=== PATIENT | female | born 1940 | race Caucasian/White ===

== ENCOUNTER → 2016-07-30 | Outpatient (CLI) | payer OTHER, BC ==
[2016-07-30 10:06] LABS: ESTIMATED AVERAGE GLUCOSE 120 mg/dl; HA1C FLAG Normal (Normal)
[2016-07-30 10:32] LABS: BLOOD UREA NITROGEN 21 mg/dl (7-18); BUN/CREATININE RATIO 24.8 (10-20); CALCIUM 9.7 mg/dl (8.5-10.1); CARBON DIOXIDE 33 mmol/L (21-32); CHLORIDE 106 mmol/L (98-107); CREATININE 0.86 mg/dl (0.60-1.20); GLUCOSE 95 mg/dl (70-99); SODIUM 144 mmol/L (136-145)
== END | disposition home or self-care (01) ==
LOC: C.LAB 08:43
PROVIDERS: ATTEND Internal Medicine Geriatric Medicine
DX: I10 Essential (primary) hypertension (principal); R73.9 Hyperglycemia, unspecified

== ENCOUNTER → 2017-02-06 | Outpatient (CLI) | payer OTHER, BC ==
--- NOTE | 2017-02-07 15:37 | MAMMOGRAPHY REPORT ---
BILATERAL DIGITAL SCREENING MAMMOGRAM WITH CAD: 02/06/2017 CLINICAL HISTORY: Routine screening. Patient has no complaints. TECHNIQUE: Current study was also evaluated with a Computer Aided Detection (CAD) system. Bilateral CC and MLO views were obtained. COMPARISON: Comparison is made to exams dated: 02/06/2016 mammogram, 05/03/2013 mammogram - [facility], 11/08/2009 mammogram- [facility]. BREAST COMPOSITION: The tissue of both breasts is almost entirely fatty. FINDINGS: No suspicious masses, calcifications, or areas of architectural distortion are noted in ei ther breast. There has been no significant interval change compared to prior exams. A small 6 mm nod ular asymmetry in the right upper outer quadrant is stable om MLO views dating back to at least the F ebruary 2013 exam, and is considered benign given long-term stability. IMPRESSION: ACR BI-RADS CATEGORY 2: BENIGN There is no mammographic evidence of malignancy. A 1 year screening mammogram is recommended. The pa tient will receive written notification of the results. Approximately 10% of breast cancers are not detected with mammography. A negative mammographic report should not delay biopsy if a clinically suggestive mass is present. Hannah Case M.D. /:02/06/2017 16:12:15 Application Penetration Tester: Lorraine MULLEN)(Claudio), [facility] letter sent: Normal 1/2 BI-RADS Code: ACR BI-RADS Category 2: Benign
== END | disposition home or self-care (01) ==
LOC: C.MAMM 09:48
PROVIDERS: ATTEND Internal Medicine Geriatric Medicine
DX: Z12.31 Encounter for screening mammogram for malignant neoplasm of breast (principal)

== ENCOUNTER → 2017-03-06 | Outpatient (CLI) | payer OTHER, BC ==
[2017-03-06 12:08] LABS: BASO % 0.8 %; BASO ABS # 0.05 K/uL (0-0.2); COMPLETE YES; EOS % 3.3 %; HEMATOCRIT 38.5 % (37-47); IG% 0.6 %; LYMPH % 33.3 %; LYMPH ABS # 2.12 K/uL (1.2-3.4); MEAN CELL VOLUME 91.4 fL (80-100); MEAN CORPUSCULAR HEMOGLOBIN 29.2 pg (25-34); MEAN CORPUSCULAR HGB CONC 31.9 g/dl (32-36); MEAN PLATELET VOLUME 11.3 fL (7.4-10.4); PLATELET COUNT 290 K/uL (130-400); RED BLOOD COUNT 4.21 M/uL (4.2-5.4); WHITE BLOOD COUNT 6.36 K/uL (4.8-10.8)
[2017-03-06 12:36] LABS: BLOOD UREA NITROGEN 23 mg/dl (7-18); BUN/CREATININE RATIO 28.4 (10-20); CARBON DIOXIDE 28 mmol/L (21-32); CHLORIDE 105 mmol/L (98-107); CHOLESTEROL 178 mg/dl (0-200); CREATININE 0.81 mg/dl (0.60-1.20); GLUCOSE 86 mg/dl (70-99); POTASSIUM 3.7 mmol/L (3.5-5.1); SODIUM 139 mmol/L (136-145)
[2017-03-06 12:39] LABS: CHOLESTEROL/HDL RATIO 2.5; HDL CHOLESTEROL 72 mg/dl; LDL CHOLESTEROL CALCULATED 95 mg/dl; TRIGLYCERIDES 55 mg/dl (0-150); VERY LOW DENSITY LIPOPROT CALC 11 mg/dl
== END | disposition home or self-care (01) ==
LOC: C.LAB 11:22
PROVIDERS: ATTEND Internal Medicine Geriatric Medicine
DX: I10 Essential (primary) hypertension (principal); M19.90 Unspecified osteoarthritis, unspecified site; R73.9 Hyperglycemia, unspecified; E78.5 Hyperlipidemia, unspecified

== ENCOUNTER → 2017-03-25 | Outpatient (CLI) | payer OTHER, BC | END | disposition home or self-care (01) | LOC: C.LAB 08:53 | PROVIDERS: ATTEND Internal Medicine Geriatric Medicine | DX: R31.29 Other microscopic hematuria (principal) ==

== ENCOUNTER 2019-04-09 07:47 | Inpatient (IN) ==
--- NOTE | 2019-03-08 12:50 | Anesthesiology Consultation ---
Date of Service March 08, 2019 Assessment & Plan (1) Encounter for pre-operative examination: Chart Review Chart Review: Acceptable Risk for Surgery and Patient seen in Pre Admission Testing Teaching & Discussion Instructed NPO after midnight before surgery, except medications with 15 cc of water. Medication instructions provided according to the PAT guidelines. History Surgery Operation Date: 04/09/19 09:00 Proposed Procedures p Left Total Knee Arthroplasty - Brandin Mac, Height/Weight Height: 5 ft Weight: 92.8 kg Allergies Allergy/AdvReac Type Severity Reaction Status Date / Time ampicillin Allergy Unknown RED URINE Verified 03/01/19 11:46 Medications Home Medications Medication Instructions Recorded Confirmed Last Taken atorvastatin 10 mg PO QAM 03/20/18 03/08/19 03/01/19 calcium carbonate [Calcium 500] 500 mg PO QPM 03/20/18 03/08/19 04/10/18 12:00 multivitamin 1 cap PO QPM 03/20/18 03/08/19 04/10/18 12:00 omega 2-itd-via-fish oil [Fish Oil] 1 cap PO QPM 03/20/18 03/08/19 04/03/18 12:00 triamterene-hydrochlorothiazid 1 cap PO QAM 03/20/18 03/08/19 03/01/19 Past Medical History Medical History Aortic stenosis, mild (Chronic) Back problem MISALIGNED DISC Emphysema of lung MENTIONED FOLLOWING PREVIOUS PRE TESTING STUDY Heart murmur Hyperlipidemia (Chronic) Hypertension (Chronic) Neck problem LIMITED ROM SIDE TO SIDE FOR YRS Osteoarthritis (Chronic) Therapy CURRENT ACCUPUNCTURE FOR L KNEE AND BACK Exercise / Class Metabolic Activity II 4-5 Yardwork/Stairs/Walk up hill (Denies CP or SOB with 1 FOS, does very often at home) Past Surgical History Surgical History H/O total knee replacement dos 04/17/[address] Mac History of cataract surgery RIGHT AND LEFT History of colonoscopy Hx of dilation and curettage X2 ? Past Anesthesia History No Hx of Anesthesia Complications and No Family Hx of Anesthesia Complications History of PONV No Hx of PONV and No Hx of Motion Sickness Social History Smoking Status: Former smoker Smoking cigarettes per day: H/O 1PPD Do You Dip or Chew Tobacco: No Smoking End Date: 1986 Hx Alcohol Use: Yes Alcohol type: wine alcohol intake frequency: holidays/special occasions only Hx Substance Use: No substance use type: does not use Review of Systems Pt denies any recent chest pain, shortness of breath, palpitations, cough, fever or URI. Physical Exam Vital Signs BP: 111/72 P: 75bpm SPO2: 94% RA T: 98.4 F R: 16 ENMT Mouth: + dentures and + edentulous; no chipped teeth and no loose teeth Thyromental Distance: > or= 3.5 Finger Breadths Mallampati Class: II Neck + short neck; neck extension not limited Respiratory normal respiratory effort Auscultation: lungs clear to auscultation bilaterally Cardiovascular Rate/Rhythm: regular rate and regular rhythm Heart Sounds: + murmur (II/ KAILYN ) Vessels: no carotid bruit Extremities: no edema Testing Laboratory Results 03/08/19 12:59 03/08/19 12:59 PT 10.1 Seconds (9.0-12.0) 03/08/19 12:59 INR 1.0 (0.9-1.1) 03/08/19 12:59 APTT 26.5 Seconds (21.0-31.0) 03/08/19 12:59 Blood Type A Positive 03/08/19 12:59 Antibody Screen NEGATIVE 03/08/19 12:59 Electrocardiogram Date: 01/04/19 Findings: + NSR @ (80bpm) Nonspecific ST abnormality. Chest X-Ray Date: 03/08/19 IMPRESSION: 1. Coarsened underlying lung markings could suggest emphysema or other mild chronic lung disease. 2. No focal infiltrate to suggest acute cardiopulmonary disease. Echocardiogram Date: 04/03/18 EF: 50-60% Normal L:V size and systolic function. No definite regional wall motion abnormalities. No LVH. Type I diastolic dysfunction. Mild left atrial dilation. Mild (XIMENA 1.4cm, mean gradient 14.9mmHg).
--- NOTE | 2019-03-08 12:57 | PAT Medication Instructions ---
Medication Instructions Date of Service March 08, 2019 Home Medications atorvastatin 10 mg PO QAM calcium carbonate [Calcium 500] 500 mg PO QPM multivitamin 1 cap PO QPM omega 9-fvh-ttl-fish oil [Fish Oil] 1 cap PO QPM triamterene-hydrochlorothiazid 1 cap PO QAM STOP taking 2 weeks before surgery omega 4-fmi-zjb-fish oil [Fish Oil] 1 cap PO QPM DO NOT take the morning of surgery triamterene-hydrochlorothiazid 1 cap PO QAM Take morning of surgery With a small sip of water, OTHERWISE NOTHING TO EAT OR DRINK AFTER MIDNIGHT: atorvastatin 10 mg PO QAM Take evening before surgery calcium carbonate [Calcium 500] 500 mg PO QPM multivitamin 1 cap PO QPM Other Notes If you have any questions please call us at [phone] or [phone] or [phone] or [phone]
--- NOTE | 2019-03-08 13:29 | XRay Report ---
XR chest Pre-admission PA/Lat CLINICAL HISTORY: 78 years-old Female presenting with preoperative assessment. TECHNIQUE: Portable upright AP view of the chest was obtained. COMPARISON: 03/30/2018. FINDINGS: Atherosclerosis of the aortic arch. Cardiac silhouette normal in size. Heterogeneously coarsened lung markings. Slight blunting of the left costophrenic angle though no effusion is evident in the precision optical goods worker ior costophrenic sulcus. No focal opacity. No large effusion or pneumothorax. Degenerative changes of the thoracic spine. Upper abdomen normal. IMPRESSION: 1. Coarsened underlying lung markings could suggest emphysema or other mild chronic lung disease. 2. No focal infiltrate to suggest acute cardiopulmonary disease. Electronically signed by: Gray Vance M.D. 03/08/2019 1:27 PM
[2019-03-08 14:21] LABS: Basophils # (auto) 0.02 K/uL (0-0.2); Basophils % (auto) 0.3 %; Eosinophils # (auto) 0.17 K/uL (0-0.5); Eosinophils % (auto) 2.3 %; Hematocrit (blood only) 38.7 % (37-47); Hemoglobin 12.3 g/dL (12.0-16.0); Immature Granulocytes # (auto) 0.04 K/uL (0.00-0.02); Immature Granulocytes % (auto) 0.5 %; Lymphocytes # (auto) 1.86 K/uL (1.2-3.4); Lymphocytes % (auto) 25.4 %; Mean Corpuscular Hemoglobin 29.8 pg (25-34); Mean Corpuscular Hgb Conc 31.8 g/dL (32-36); Mean Corpuscular Volume 93.7 fL (80-100); Mean Platelet Volume 11.3 fL (7.4-10.4); Monocytes # (auto) 0.74 K/uL (0.11-0.59); Monocytes % (auto) 10.1 %; Neutrophils % (auto) 61.4 %; Platelet Count 258 K/uL (130-400); Red Blood Count 4.13 M/uL (4.2-5.4); White Blood Count 7.33 K/uL (4.8-10.8)
[2019-03-08 14:41] LABS: Partial Thromboplastin Time 26.5 Seconds (21.0-31.0); Prothrombin Time 10.1 Seconds (9.0-12.0)
[2019-03-08 14:55] LABS: Calcium 9.4 mg/dl (8.5-10.1); Creatinine Clr Calc Pharmacy 45.9 ml/min; Est GFR (African American) 61.3; Est GFR (Non-African American) 52.9; Potassium 3.9 mmol/L (3.5-5.1)
--- NOTE | 2019-04-08 06:38 | History & Physical Report ---
Date of Service April 08, 2019 Assessment & Plan (1) Osteoarthritis of left knee: We will proceed with a left total knee arthroplasty. Postoperatively she will be started on aspirin for DVT prophylaxis. She will be kept overnight in the hospital for postoperative medical management. She plans to use energy physical therapy upon discharge. Present on Admission?: Yes History of Present Illness Chief Complaint: Primary osteoarthritis of the left knee Primary Care Provider: Marnie Brunner MD Lolis is a pleasant 78-year-old female who is been dealing with chronic increasing left knee pain. I did a right total knee arthroplasty on her a year ago and she is done very well with that. Unfortunately she still having a lot of pain in her left knee. She has elected to proceed with a left total knee arthroplasty. Allergies Allergy/AdvReac Type Severity Reaction Status Date / Time ampicillin Allergy Unknown RED URINE Verified 03/01/19 11:46 Home Medications Home Medications Medication Instructions Recorded Confirmed Type atorvastatin 10 mg PO QAM 03/20/18 03/08/19 History calcium carbonate [Calcium 500] 500 mg PO QPM 03/20/18 03/08/19 History multivitamin 1 cap PO QPM 03/20/18 03/08/19 History omega 3-bog-rpm-fish oil [Fish Oil] 1 cap PO QPM 03/20/18 03/08/19 History triamterene-hydrochlorothiazid 1 cap PO QAM 03/20/18 03/08/19 History Past Med/Surg History Medical History Aortic stenosis, mild (Chronic) Back problem MISALIGNED DISC Emphysema of lung MENTIONED FOLLOWING PREVIOUS PRE TESTING STUDY Heart murmur Hyperlipidemia (Chronic) Hypertension (Chronic) Neck problem LIMITED ROM SIDE TO SIDE FOR YRS Osteoarthritis (Chronic) Therapy CURRENT ACCUPUNCTURE FOR L KNEE AND BACK Surgical History H/O total knee replacement dos 04/17/[address] Mac History of cataract surgery RIGHT AND LEFT History of colonoscopy Hx of dilation and curettage X2 ? 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 Beliefs That Will Affect Care: None marital status: Current Living Situation: Spouse Feels Safe at Home: Yes Smoking Status: Former smoker Cigarettes Per Day: H/O 1PPD ; Second Hand Exposure: No ; Hx Alcohol Use: Yes Alcohol type: wine Hx Substance Use: No Review of Systems All systems reviewed & are unremarkable except as noted in HPI & below Physical Exam Constitutional: WD/WN, vitals as above Eyes: PERRL, conjunctivae normal, anicteric sclerae ENMT: external ear and nose normal, oropharynx normal Neck: trachea midline, no thyromegaly Respiratory: normal respiratory effort Cardiovascular: RRR, no murmur, no edema Gastrointestinal (Abdomen): normal bowel sounds, soft, nontender, no hepatosplenomegaly Musculoskeletal: On physical examination of the left knee there is a trace effusion. There is near full range of motion and no evidence of instability. There is significant tenderness palpation along the medial and lateral joint lines and over the distal femoral condyles. Psychiatric: A+Ox3, euthymic affect Results & Data Diagnostic Findings Radiographs of the left knee demonstrate advanced osteoarthritis with joint space narrowing osteophyte formation and [id number] articulation.
[~2019-04-09 07:47] MED LIST: ACETAMINOPHEN 500 MG TAB PO SCH; BUPIVACAINE 0.5 % 5 MG/1 ML PF 10ML VIAL ONE; BUPIVACAINE/EPINEPHRINE 0.25% 1:200,000 30 ML VIAL ONE; CEFAZOLIN 2000MG 2,000 MG/15 ML SYR IV SCH; DEXAMETHASONE SOD INJ 4 MG/ML VIAL ONE; FAMOTIDINE 20 MG TAB PO SCH; GABAPENTIN 300 MG CAP PO SCH; LR 500ML BOLUS, THEN 15ML/HR IV SCH; LR 60ML/HR IV SCH; ROPIVACAINE 0.5% HCL/PF 150 MG, BUPIVACAINE 0.5% MPF 30 ML, EPINEPHrine 30MG/30ML (OR U... INSTIL SCH; TRANEXAMIC ACID 1,000 MG **IV Intra-op IV SCH; TRANEXAMIC ACID 1,000 MG **IV Pre-op IV SCH; dexAMETHasone 4 MG TAB PO SCH
[2019-04-09] MEDS ORDERED: fentaNYL citrate 100 MCG/2 ML VIAL ONE (08:44)
[2019-04-09] MEDS ORDERED: MIDAZOLAM HCL 1 MG/ML 2ML VIAL ONE ×2 (08:44→09:45)
[2019-04-09] MEDS ORDERED: LIDOCAINE HCL 2% 2 ML VIAL/AMP(20MG/ML) INFIL ONE (08:44)
[2019-04-09] MEDS ORDERED: PROPOFOL IV EMULSION 10 MG/ML 20 ML VIAL IV ONE (08:44)
--- NOTE | 2019-04-09 08:50 | History & Physical Bridge Note ---
Date of Service April 09, 2019 History & Physical Bridge Note I have examined the patient, reviewed the History & Physical and in the interval since the performance of the History & Physical I have noted the following changes of clinical significance: no changes noted
[2019-04-09] MEDS ORDERED: TRANEXAMIC ACID / 0.7% NACL 1000MG/100ML BAG IV ONE (08:54)
[2019-04-09] MEDS ORDERED: fentaNYL citrate 100 MCG/2 ML VIAL IV PRN (09:23)
[2019-04-09] MEDS ORDERED: ORTHO JOINT ANESTHETIC ONE (09:23)
[2019-04-09] MEDS ORDERED: ATROPINE SULFATE 0.1 MG/ML 10ML SYR IV PRN (09:23)
[2019-04-09] MEDS ORDERED: ONDANSETRON INJ 2 MG/ML 2 ML VIAL IV PRN ×2 (09:23→12:34)
[2019-04-09] MEDS ORDERED: ePHEDrine sulfate 50 MG/ML AMP IV PRN (09:23)
[2019-04-09] MEDS ORDERED: PHENYLEPHRINE 100MCG/ML 5ML SYR ONE (11:06)
--- NOTE | 2019-04-09 11:41 | Operative Report ---
PG Post Operative Report Pre & Post Diagnosis Operation Date: 04/09/19 10:20 Pre-Op Diagnosis: Left Knee Degenerative Joint Disease Post-Op Diagnosis: Left Knee Degenerative Joint Disease I identified the patient and participated in the time-out.: Yes Procedure Operation Date: 04/09/19 10:20 Actual Procedures p Left Total Knee Arthroplasty(Left) - Brandin Mac DO Surgeon Brandin Mac, Director Of Nursing Brandin Muller PAC Estimated Blood Loss 20 Findings Consistent with Post-Op Diagnosis Specimens Left femoral and tibial bone Complications none Disposition Disposition: Recovery Room Indications Patient is a pleasant 78-year-old female who presented my office with complaints of left knee pain. X-rays and clinical examination were diagnostic for primary osteoarthritis of the left knee. After failing conservative treatment, she elected proceed with a left total knee arthroplasty. She had a right knee replacement done a year ago and did well with that. Description of Procedure Implants used: I used a [employer] Vanguard total knee arthroplasty system with a size 62.5 femur, 71 tibia, 31 patella, and a size 10 PS plus polyethylene bearing. All components were cemented in place with Palacos G cement. The patient arrived [facility] for the above procedure. There were seen in the preoperative holding area and the operative extremity was identified and signed. There were given a preoperative antibiotic, a spinal anesthetic and an adductor nerve block. There were taken back to the operating room and laid on the table in supine position. There were given basic sedation. The operative knee was then prepped and draped in sterile fashion. A timeout was done, and the patient and the operative extremity was properly identified. A midline incision was made directly over the patella. Dissection was taken down to the extensor mechanism. A subvastus arthrotomy was used. The medial retinaculum was released and the fat pad was mostly left intact. The knee was flexed and the ACL, PCL, and meniscus were removed. A drill was sent down the center of the femoral canal followed by an intramedullary eliseo. Off that eliseo a distal femoral cutting block was placed. 9 mm was resected off the distal femur at 5 of valgus. A posterior referencing AP sizing guide was then placed on the distal femur. The femur measured to be a size 62.5. 2 drill holes were placed in 3 of external rotation. A 4-in-1 cutting block was then impacted into place. Anterior posterior and chamfer cuts were then made. The posterior stabilizing box guide was then impacted into place and the box was resected for the posterior stabilizing component. The proximal tibia was then exposed. A drill was sent down the center of the tibial canal followed by an intramedullary eliseo. Off that eliseo a proximal tibial resection guide was placed. The proximal tibia was then resected. The tibia measured to be a size 71. The tibial plate was then placed in the appropriate rotation and the tibia was punched. The posterior aspect of the knee was then opened up and any additional meniscus fragments and osteophytes were removed. Trial components were then placed. I used a size 10 PS plus polyethylene insert. The knee was brought through a full range of motion and felt to be stable. The patella was then everted and 8 mm was resected off the posterior aspect of the patella. The patella measured to be a size 31. 3 peg holes were then drilled. A trial patella was placed. The knee was once again brought through a full range of motion and felt to be stable. Trial components were then removed. The surrounding soft tissues were injected with 100 cc of an orthopedic pain control cocktail. All components were then cemented into place with Palacos G cement. The final polyethylene insert was then snapped into place and the anterior bar was locked. Once cement was dry the tourniquet was deflated. Hemostasis was obtained. A dilute betadyne lavage was then done for 3 minutes. The joint was then irrigated with normal saline solution. The subvastus arthrotomy was then closed with #1 Vicryl suture. The skin was closed with 2-0 Vicryl, 3-0V lock suture, and tuan. A soft compressive dressing was placed. The patient was then transferred to a hospital bed and taken to the postanesthesia care unit in stable condition. They tolerated the procedure well. I attest to the content of the Intraoperative Record and any orders documented therein. Any exceptions are noted below.
--- NOTE | 2019-04-09 12:12 | Anesthesiology Progress Note ---
Date of Service April 09, 2019 Anesthesia Post Procedure Vital Signs Vital Signs: Temp Pulse Pulse Resp BP BP Pulse Ox 04/09/19 12:00 81 14 121/72 94 04/09/19 11:51 36.7 C 96 H 16 117/61 98 04/09/19 08:33 36.8 C 72 20 129/73 97 Pain Intensity Left Knee: Pain Intensity: 0 Transfer of Care Handoff Completed per policy Notes Mental Status: alert / awake / arousable Patient Amnestic to Procedure: Yes Nausea / Vomiting: adequately controlled Pain: adequately controlled Airway Patency, RR, SpO2: stable & adequate BP & HR: stable & adequate Hydration State: stable & adequate Neuraxial Anesthesia: was administered and sensory block is resolving Anesthetic Complications: no major complications apparent and Pt Satisfied with anesthetic care
[2019-04-09] MEDS ORDERED: OXYCODONE HCL IR 5 MG TAB (IMMEDIATE RELEASE) PO PRN (12:34)
[2019-04-09] MEDS ORDERED: HYDROmorphone INJ 0.5 MG/0.5 ML SYR IV PRN (12:34)
[2019-04-09] MEDS ORDERED: NALOXONE HCL 0.4 MG/1 ML VIAL/CARP IV PRN (12:34)
[2019-04-09] MEDS ORDERED: METOCLOPRAMIDE HCL INJ 5 MG/ML 2 ML VIAL IV PRN (12:34)
[2019-04-09] MEDS ORDERED: bisacodyL 10 MG SUPP PR PRN (12:34)
[2019-04-09] MEDS ORDERED: MAGNESIUM HYDROXIDE SUSP 30 ML UDC PO PRN (12:34)
--- NOTE | 2019-04-09 12:49 | XRay Report ---
TWO VIEWS LEFT KNEE CLINICAL HISTORY: Postoperative examination. FINDINGS: AP and crosstable lateral portable views of the left knee are obtained. A left knee arthrop lasty is in near anatomic alignment. There has been undersurface remodeling of the patella. No acute fracture is seen. There are expected postoperative changes around the knee including skin clips, soft tissue edema, and subcutaneous gas. IMPRESSION: Expected postoperative changes status post left knee arthroplasty. No acute fracture is s een. ACT 112: Negative or not required by law. Electronically signed by: Tolu Hester M.D. 04/09/2019 12:48 PM
[2019-04-09] MEDS: SODIUM CHLORIDE 0.9% 1000ML 1,000 ML IV SCH ×2 (13:26→23:23)
[2019-04-09] MEDS: ACETAMINOPHEN 500 MG TAB PO SCH ×2 (13:27→22:07)
[2019-04-09] MEDS: CEFAZOLIN 2000MG 2,000 MG/15 ML SYR IV SCH (19:08)
[2019-04-09] MEDS: KETOROLAC TROMETHAMINE 15 MG/ML VIAL IV SCH ×2 (19:09→23:22)
[2019-04-09] MEDS ORDERED: SENNA 8.6 MG TAB PO SCH (21:00)
[2019-04-09] MEDS: DOCUSATE SODIUM 100 MG CAP PO SCH (22:06)
[2019-04-09] MEDS: ASPIRIN 81 MG ECTAB PO SCH (22:06)
[2019-04-10] MEDS: CEFAZOLIN 2000MG 2,000 MG/15 ML SYR IV SCH (02:07)
[2019-04-10] MEDS: KETOROLAC TROMETHAMINE 15 MG/ML VIAL IV SCH (06:14)
[2019-04-10] MEDS: ACETAMINOPHEN 500 MG TAB PO SCH (06:14)
[2019-04-10 06:47] LABS: Hematocrit (blood only) 34.7 % (37-47); Hemoglobin 11.5 g/dL (12.0-16.0); Mean Corpuscular Hemoglobin 30.1 pg (25-34); Mean Corpuscular Hgb Conc 33.1 g/dL (32-36); Mean Corpuscular Volume 90.8 fL (80-100); Mean Platelet Volume 11.3 fL (7.4-10.4); Platelet Count 225 K/uL (130-400); RDW Coefficient of Variation 13.7 % (11.5-14.5); RDW Standard Deviation 45.4 fL (36.4-46.3); Red Blood Count 3.82 M/uL (4.2-5.4); White Blood Count 16.79 K/uL (4.8-10.8)
[2019-04-10 07:20] LABS: BUN Creatinine Ratio 18.9 (10-20); Calcium 8.4 mg/dl (8.5-10.1); Creatinine Clr Calc Pharmacy 31.4 ml/min; Est GFR (African American) 39.3; Est GFR (Non-African American) 33.9; Potassium 3.1 mmol/L (3.5-5.1)
[2019-04-10] MEDS ORDERED: dexAMETHasone 4 MG TAB PO SCH (08:00)
[2019-04-10] MEDS: DOCUSATE SODIUM 100 MG CAP PO SCH (08:37)
[2019-04-10] MEDS: ASPIRIN 81 MG ECTAB PO SCH (08:37)
[2019-04-10] MEDS ORDERED: ATORVASTATIN 10 MG TAB PO SCH (09:00)
[2019-04-10] MEDS ORDERED: TRIAMTERENE/HCTZ 37.5/25MG CAP PO SCH (09:00)
[2019-04-10] MEDS ORDERED: MULTIVITAMIN TAB PO SCH (09:00)
--- NOTE | 2019-04-10 09:24 | Orthopedic Progress Note ---
Date of Service April 10, 2019 Assessment & Plan (1) History of total left knee replacement: Overall she is doing very well. She is not having much pain in the knee. She will be seen by physical therapy this morning for ambulation and range of motion exercises. She can be discharged home later today if she is feeling okay. She is on aspirin for DVT prophylaxis. She will follow-up with orthopedics in 2 weeks. Present on Admission?: Yes Subjective Lolis was seen and examined at bedside this morning. Overall she is doing very well. She is not having much pain in the knee. She is happy with her progress to this point. She has already been up and ambulating. She has no complaints. Physical Exam Musculoskeletal: On physical examination of the left knee, the dressing has been reinforced. She is sitting with her knee flexed at about 80 degrees. She has active dorsiflexion and plantarflexion of her left ankle. Results & Data Vital Signs (Past 12 Hours) Vital Signs Temp Pulse Resp BP Pulse Ox 04/10/19 07:34 36.3 C L 51 L 16 112/66 94 04/10/19 02:25 36.5 C 64 16 99/58 L 97 04/09/19 23:05 36.5 C 58 L 16 98/60 L 97 Laboratory Results H & H 03/08/19 04/10/19 Range/Units 12:59 06:37 Hgb 12.3 11.5 L (12.0-16.0) g/dL Hct 38.7 34.7 L (37-47) % Coagulation 03/08/19 Range/Units 12:59 INR 1.0 (0.9-1.1) Diagnostic Findings Postoperative x-rays of the left knee show the prosthesis to be in anatomic alignment without any evidence of fracture, dislocation, or loosening. PG Care Time/CCT Total # of Minutes Spent Total Time Spent with Patient: Total time spent is greater than 50% in coordination of care (as documented) at patient's floor/unit and/or counseling patient: Coding Level of Care Code None Diagnoses History of total left knee replacement Z96.652
--- NOTE | 2019-04-11 07:47 | Discharge Summary ---
Date of Service April 11, 2019 Admission HPI Per Admitting Provider Lolis is a pleasant 78-year-old female who is been dealing with chronic increasing left knee pain. I did a right total knee arthroplasty on her a year ago and she is done very well with that. Unfortunately she still having a lot of pain in her left knee. She has elected to proceed with a left total knee arthroplasty. Principal Diagnosis Left total knee arthroplasty Discharge Data Allergies Allergy/AdvReac Type Severity Reaction Status Date / Time ampicillin Allergy Unknown RED URINE Verified 03/01/19 11:46 Consultations 04/09/19 12:34 Consult Case Management - Discharge Planning Routine Procedures Performed Operation Date: 04/09/19 10:20 Actual Procedures p Left Total Knee Arthroplasty(Left) - Brandin Mac DO Ordered Studies 04/09/19 05:00 US - OR guided needle placemen Routine Hospital Course (1) History of total left knee replacement: On April 09, 2019 Lolis arrived at [facility] and underwent a left total knee arthroplasty without complication. She had a spinal anesthetic and a left adductor nerve block. Postoperatively she was started on aspirin for DVT prophylaxis and discharged to general orthopedic floors. Her hospital course was uneventful. On postop day #1 her H&H was stable and her pain was well controlled. She was able to participate well with physical therapy doing ambulation and range of motion exercises. She was then discharged home. She will follow-up with orthopedics in 2 weeks. Total Time Total Time Spent Total Time Spent (In Minutes): 20 Discharge Plan Discharge Items Patient Disposition: Home - Home Health Services Reason For Visit: Left Knee Degenerative Joint Disease Discharge Diagnosis: Left total knee arthroplasty Activity: As commented below Non-emergency contact: Surgeon Call non-emergency contact if: your wound has increased redness and your wound has increased drainage Follow-up/Referrals: Marnie Brunner MD [Primary Care Provider] - Diet: Regular Addtl Attending Provider Instructions: Activity and Therapy Recommendations: * If you are using [facility] then therapy will be provided at your home until they feel you have accomplished all of your goals. * If you are using [facility] then Physical Therapy will be provided until they feel you are ready to start Outpatient Physical Therapy. * If you are not using home therapy then Outpatient Physical Therapy should start about 3-5 days from your day of surgery. Therapy will last about 6-10 weeks * It is important not to put a pillow under your knee when you are relaxing or sleeping. It is just as important to make sure you are getting your knee perfectly straight as it is to regain your knee bend. * You were shown a series of exercises in the hospital. Do these exercises three times each day including the exercises you were shown in physical therapy. * Get up and walk several times each day. For the first four weeks, try not to stand or walk for more than one hour at a time. If you do stand or walk for more than one hour, you will not hurt anything, but your leg will likely swell. * As you feel comfortable, you may change from the walker or crutches to a cane and then to independent walking. Medications: * Narcotic You will likely be sent home from the hospital with a prescription for the narcotic pain medication that worked best throughout your stay. * Aspirin Most patients will be required to take Aspirin 81mg twice a day for 6 weeks after surgery. This is obtained [id number] and a prescription is not necessary. * Other medications may be prescribed for specific circumstances. If you have any questions, please call the office at . * Resume previous home medications unless otherwise instructed TEDs/Elastic Stockings: The white elastic stockings help limit swelling and prevent blood clots from forming in your legs.~ The more you wear them, the more they work. Wear them for six weeks. Dressing Care: If the incision is not draining then you may leave the tuan open to air. If there is a little bit of drainage or if the tuan are getting stuck on your clothing then cover the incision with a dry dressing. The tuan will be removed at your 2 week follow-up appointment. Showering: You may shower 5 days from the day of surgery. Let the soapy shower water run over the tuan and pat them dry. Do not scrub or soak the incision. Things To Watch For: * Drainage from the incision site that occurs more than one week after your surgery. * Increased redness at the incision site. * Fever above 102 degrees Fahrenheit. * Unusual chest pain or shortness of breath. * Call [facility] at with any of the above problems Follow-Up Visit: Follow-up with Dr. Mac 2-3 weeks after your day of surgery. An appointment was probably scheduled when you signed-up for surgery in the office. If you have any questions call Office Instructions: More detailed instructions as well as Frequently Asked Questions were provided in a folder by our office when you signed-up for surgery. Please review these instructions when you get home. If you have any further questions or concerns, please feel free to call the office at [phone] Pending Studies at Discharge: No Stand-Alone Forms: [facility], Smoking Cessation Medications and DC Order Prescriptions: New aspirin [Ecotrin Low Strength] 81 mg Tablet,Delayed Release (Dr/Ec) 81 mg PO BID 42 Days Qty: 0 RF: 0 Continued atorvastatin [Lipitor] 10 mg Tablet 10 mg PO QAM RF: 0 triamterene-hydrochlorothiazid [Dyazide] 37.5-25 mg Capsule 1 cap PO QAM RF: 0 calcium carbonate [Calcium 500] 500 mg calcium (1,250 mg) Tablet 500 mg PO QPM RF: 0 multivitamin Capsule 1 cap PO QPM RF: 0 omega 2-usy-bfb-fish oil [Fish Oil] 1,000 mg (120 mg-180 mg) Capsule 1 cap PO QPM RF: 0 Discharge Orders: Discharge Order (Routine); Ordered 04/10/19 Ordered By: Brandin Pathak/Other Patient Handouts: Surgery Prevent DVT After Admission Data Admit Date/Time: 04/09/19 11:59 Attending Provider: Brandin Mac Admit Provider: Brandin Mac Primary Care Provider: Marnie Brunner Other Interventions: Discharge Summary Assessment (RN) Last Done: 04/10/19 09:58 DC Date/Time DO NOT enter until pt leaves facility: 04/10/19 11:01 Coding Level of Care Code D/C Day Management <30 mins Diagnoses History of total left knee replacement Z96.652
== END 2019-04-10 11:01 | disposition home or self-care (01) | DRG 470 ==
LOC: ASU 07:47 → 3E 11:59